=== PATIENT | female | born 1945 | race Caucasian/White ===

== ENCOUNTER 2019-05-13 10:58 | Outpatient (CLI) | payer MEDICARE ==
[~2019-05-13 10:58] MED LIST: ASPI-496 PO; ATOR40TA78 PO; BACI1TAB3 PO; CHOL100011 PO; CINN500C2 PO; MINO100C61 PO; MIRA50TA PO; MULT-124 PO; VENL150C6 PO
[2019-05-13] MEDS ORDERED: METR1KIT TP (11:49)
[2019-05-18] MEDS ORDERED: BUPIVACAINE/PF 0.5% ONE (15:45)
[2019-05-18] MEDS ORDERED: EPINEPHRINE 1 MG/ML, 1ML ONE (15:45)
== END 2019-05-13 23:59 | disposition home or self-care (01) ==
LOC: STAR 10:58
PROVIDERS: ATTEND Surgery
DX: Z02.9 Encounter for administrative examinations, unspecified (principal)

== ENCOUNTER 2019-05-18 12:23 | Day surgery (SDC) | payer MEDICARE ==
[~2019-05-18] VITALS: Ht 165.1 cm; Wt 77.1 kg
[~2019-05-18 12:23] MED LIST changes: +METR1KIT TP
[2019-05-18] MEDS ORDERED: LACTATED RINGERS 1,000 ML IV SCH (13:02)
[2019-05-18 13:03] VITALS: BP 135/78
[2019-05-18] MEDS ORDERED: HYDROmorphone 2 MG/ML, 1ML IVPush PRN (15:00)
[2019-05-18] MEDS ORDERED: hydrALAzine 20 MG/ML, 1ML IV PRN (15:00)
[2019-05-18] MEDS ORDERED: FENTANYL PF 100 MCG/2ML IV PRN (15:00)
[2019-05-18] MEDS ORDERED: EPHEDRINE 50 MG/ML, 1ML IVPush PRN (15:00)
[2019-05-18] MEDS ORDERED: ACETAMINOPHEN 325 MG TABLET PO PRN (15:00)
[2019-05-18] MEDS ORDERED: LABETALOL 5MG/ML, 20ML IV PRN (15:00)
[2019-05-18] MEDS ORDERED: ONDANSETRON 2MG/ML, 2ML IV PRN (15:00)
[2019-05-18] MEDS ORDERED: MEPERIDINE/PF 25MG/ML,1ML IVPush PRN (15:00)
[2019-05-18] MEDS ORDERED: PROMETHAZINE 25 MG/ML, 1ML IV PRN (15:00)
[2019-05-18] MEDS ORDERED: HYDROcodone/APAP 7.5-325MG/15ML UDC PO PRN (15:00)
[2019-05-18] MEDS ORDERED: SODIUM CHLORIDE 0.9% PF 10ML ONE (15:02)
[2019-05-18] MEDS ORDERED: PROPOFOL 10 MG/ML, 20ML ONE (15:02)
[2019-05-18] MEDS ORDERED: CEFAZOLIN 1,000 MG ONE ×2 (15:02)
[2019-05-18] MEDS ORDERED: LIDOCAINE-MPF 2% ,5ML ONE (15:02)
[2019-05-18] MEDS ORDERED: SUCCINYLCHOLINE 20 MG/ML, 10ML ONE (15:02)
[2019-05-18] MEDS ORDERED: DEXAMETHASONE 4 MG/ML, 1ML ONE ×2 (15:02)
[2019-05-18] MEDS ORDERED: FENTANYL PF 100 MCG/2ML ONE (15:06)
[2019-05-18] MEDS ORDERED: KETOROLAC 30 MG/1 ML ONE (16:11)
[2019-05-18] MEDS ORDERED: GLYCOPYRROLATE 0.2MG/1ML, 5ML ONE (16:20)
[2019-05-18] MEDS ORDERED: ONDANSETRON 2MG/ML, 2ML ONE (16:23)
[2019-05-18] MEDS ORDERED: BUPIVACAINE/PF 0.5% ONE (16:50)
[2019-05-18] MEDS ORDERED: EPINEPHRINE 1 MG/ML, 1ML ONE (16:50)
[2019-05-18] MEDS ORDERED: HYDROcodone/APAP 7.5-325MG/15ML UDC ONE (17:04)
== END 2019-05-18 19:02 | disposition home or self-care (01) ==
LOC: RAD 12:23
PROVIDERS: ATTEND Surgery
DX: C50.411 Malignant neoplasm of upper-outer quadrant of right female breast (principal); E78.5 Hyperlipidemia, unspecified; Z17.0 Estrogen receptor positive status [ER+]; Z79.899 Other long term (current) drug therapy; Z87.891 Personal history of nicotine dependence
CPT/HCPCS: 38525; 38792; 88307; A9541; C1728; J0171; J0330; J0690; J1100; J1885; J2405; J2704; J3010; J7120